=== PATIENT | female | born 1980 | race Caucasian/White ===

== ENCOUNTER → 2021-02-06 | Outpatient (CLI) | payer MEDICAID ==
--- NOTE | 2021-02-07 08:49 | RAD ---
EXAM: AP, lateral and lumbosacral spot views with bilateral oblique views of the lumbar spine DATE: 02/06/2021 3:23 PM INDICATION: Reason: ACUTE RIGHT SIDED LOW BACK PAIN W LEFT SIDED SCIATICA / Spl. Instructions: / His tory: COMPARISON: No Prior FINDINGS: 5 nonrib-bearing lumbar-type vertebral bodies. Vertebral body heights are preserved. Disc heights are preserved. No spondylolisthesis. IUD in tubal ligation clips are seen in the pelvis. No acute fractu re. Moderate colonic stool content is seen. IMPRESSION: 1. Negative acute fracture or subluxation. Electronically signed by: Kaleb Patton MD (02/07/2021 8:46 AM) [id number]
--- NOTE | 2021-02-07 08:51 | RAD ---
EXAM: AP, lateral, bilateral oblique and open-mouth odontoid views of the cervical spine DATE: 02/06/2021 3:23 PM CLINICAL HISTORY: Reason: ACUTE RT-SIDED LOW BACK PAIN W/LT-SIDED SCIATICA. NECK PAIN. / Spl. Instruc tions: PARESTHESIA RIGHT ARM. / History: COMPARISON: None available. FINDINGS: On the lateral view, the cervical spine is imaged from the skull base through C6. Vertebral body heights are preserved. Intervertebral disc heights are preserved. Straightening of the normal cervical lordosis. No spondylolisthesis. Slightly suboptimal oblique views. Within these constraints the oblique views do not demonstrate bony foraminal narrowing. Normal predental space. No significant prevertebral soft tissue swelling. IMPRESSION: 1. Negative acute fracture or subluxation. Electronically signed by: Kaleb Patton MD (02/07/2021 8:48 AM) [id number]
== END ==
LOC: RAD 14:54
PROVIDERS: ATTEND Physician Assistant Medical
DX: M54.42 Lumbago with sciatica, left side (principal); M54.2 Cervicalgia; R20.2 Paresthesia of skin
CPT/HCPCS: 72050; 72110

== ENCOUNTER → 2021-04-24 | Outpatient (CLI) | payer MEDICAID ==
[~2021-04-24] MED LIST: GADOTERATE 7.5 MMOL/15ML VIAL. IVP ONE
--- NOTE | 2021-04-24 13:13 | KCIC ---
EXAM: Brain MRI with and without contrast. HISTORY: Migraine. Disequilibrium. Paresthesia. TECHNIQUE: Multiplanar, multisequence magnetic resonance imaging of the brain was performed prior to and following the administration of intravenous contrast. COMPARISON: None. FINDINGS: There is no restricted diffusion to suggest acute or subacute infarction. There is no mass effect or midline shift. There is no hydrocephalus. There is a focus of T2 such FLAIR hyperintensity along the anterior aspect of the right external capsule. The orbits are unremarkable. The paranasal s inuses and mastoid air cells are unremarkable. There are normal flow voids within the cerebral vessel s. There is no suspicious calvarial lesion. There is no hemorrhage. There is no suspicious enhancing lesion. IMPRESSION: 1. No acute intracranial finding. 2. Single focus of signal change within the right external capsule, a nonspecific finding which can b e seen with chronic small vessel disease and chronic migraine headaches. Despite the patient age, the imaging appearance does not favor demyelinating disease. Electronically signed by: Nurys Spivey MD (04/24/2021 1:10 PM) [id number]
== END ==
LOC: KCIC MRI 10:52
PROVIDERS: ATTEND Family Medicine
DX: G43.909 Migraine, unspecified, not intractable, without status migrainosus (principal); R42 Dizziness and giddiness; R20.2 Paresthesia of skin
CPT/HCPCS: 70553; A9575